=== PATIENT | female | born 1990 ===

== ENCOUNTER → 2023-03-06 | Outpatient (CLI) | payer OTHER | END | disposition home or self-care (01) | LOC: LAB 12:08 → PLD 12:08 → LAB SHORT 12:08 | DX: D48.5 Neoplasm of uncertain behavior of skin (principal) | CPT/HCPCS: 88305 ==

== ENCOUNTER → 2024-09-08 | Outpatient (CLI) | payer OTHER ==
[2024-09-16 06:11] LABS: HPV HIGH RISK BY TMA Not Detected; HPV SOURCE Cervical
== END ==
LOC: LAB 15:56 → LAB SHORT 15:56
PROVIDERS: Obstetrics & Gynecology
DX: Z01.419 Encounter for gynecological examination (general) (routine) without abnormal findings (principal)
CPT/HCPCS: 87624; G0123

== ENCOUNTER → 2024-11-06 | Outpatient (CLI) | payer OTHER ==
[2024-11-06 15:28] LABS: Source, Urine Clean Catch
[2024-11-06 17:40] LABS: Bacteria Rare /hpf; Red Blood Cells, Urine Not Seen /hpf (0-2); Squamous Epithelial Cells Rare /hpf (Few); White Blood Cells, Urine 0-2 /hpf (0-5)
== END | disposition home or self-care (01) ==
LOC: LAB SHORT 15:26
PROVIDERS: Obstetrics & Gynecology
DX: Z34.01 Encounter for supervision of normal first pregnancy, first trimester (principal)
CPT/HCPCS: 81015; 87086

== ENCOUNTER → 2024-12-10 | Outpatient (CLI) | payer OTHER ==
[2024-12-10 09:33] LABS: BASOPHILS ABSOLUTE AUTO 0.02 K/mm3 (0.00-0.23); BASOPHILS PERCENT AUTO 0 % (0-2); EOSINOPHILS ABSOLUTE AUTO 0.03 K/mm3 (0.00-0.68); EOSINOPHILS PERCENT AUTO 0 % (0-6); Hemoglobin 12.9 g/dL (11.5-16.0); IMMATURE GRAN ABSOLUTE AUTO 0.03 K/mm3 (0.00-0.10); IMMATURE GRAN PERCENT AUTO 0 % (0-1); LYMPHOCYTES ABSOLUTE AUTO 1.08 K/mm3 (0.84-5.20); LYMPHOCYTES PERCENT AUTO 15 % (21-46); MONOCYTES ABSOLUTE AUTO 0.21 K/mm3 (0.16-1.47); MONOCYTES PERCENT AUTO 3 % (4-13); Mean Corpuscular HGB 30.5 pg (26.0-34.0); Mean Corpuscular HGB Conc 35.8 g/dL (31.5-36.5); Mean Corpuscular Volume 85 fL (80-100); Mean Platelet Volume 9.1 fL (9.1-12.4); NEUTROPHILS ABSOLUTE AUTO 5.95 K/mm3 (1.96-9.15); NEUTROPHILS PERCENT AUTO 81 % (41-73); Platelet Count 264 K/mm3 (150-400); RDW Coefficient Variation 12.8 % (11.7-14.2); RDW Standard Deviation 39.3 fL (35.1-46.3); Red Blood Cell Count 4.23 M/mm3 (3.80-5.20); White Blood Cell Count 7.32 K/mm3 (4.00-11.30)
[2024-12-10 09:49] LABS: Albumin/Globulin Ratio 1.1 (0.8-1.8); Bilirubin, Total 0.7 mg/dL (0.1-1.0); Calcium, Blood 9.7 mg/dL (8.5-10.1); Creatinine, Blood 0.75 mg/dL (0.40-1.00); Globulin, Blood 3.7 g/dL (2.2-4.0); Potassium, Blood 3.4 mmol/L (3.5-5.5); Total Protein, Blood 7.7 g/dL (6.4-8.2)
== END | disposition home or self-care (01) ==
LOC: LAB SHORT 09:28 → LAB 09:28
PROVIDERS: Physician Assistant Medical
DX: R11.2 Nausea with vomiting, unspecified (principal)
CPT/HCPCS: 80053; 85025

== ENCOUNTER 2025-05-30 23:36 | Inpatient (IN) | payer OTHER ==
[~2025-05-30] VITALS: Ht 165.1 cm; Wt 88.0 kg
[2025-05-30 23:54] VITALS: BP 120/80
[2025-05-31] VITALS (18 sets, daily range): BP systolic 99–180; BP diastolic 54–92
[2025-05-31] MEDS ORDERED: FentaNYL Citrate 50 MCG/ML 2 ML Injection IV PRN (00:50)
[2025-05-31] MEDS ORDERED: Ondansetron HCl 2 MG / ML 2ML Vial IV PRN (00:55)
[2025-05-31] MEDS ORDERED: Tranexamic Acid 100 ML IV PRN (00:55)
[2025-05-31] MEDS ORDERED: FentaNYL 2mcg/ml-Bup 0.1% Epd 250 ML EPI PRN (00:55)
[2025-05-31] MEDS ORDERED: Methylergonovine Maleate 0.2MG / ML 1ML Amp IM PRN (00:55)
[2025-05-31] MEDS ORDERED: ePHEDrine Sulfate 50 MG/ML 1ML Injection XX PRN (00:55)
[2025-05-31] MEDS ORDERED: Oxytocin 10 Unit / ML Vial IM PRN (00:55)
[2025-05-31] MEDS ORDERED: Carboprost Tromethamine 250 MCG/ML 1ML Amp IM PRN (00:55)
[2025-05-31] MEDS ORDERED: OXYTOCIN/RINGER'S LACTATE 500 ML IV PRN (00:55)
[2025-05-31 01:32] LABS: BASOPHILS ABSOLUTE AUTO 0.03 K/mm3 (0.00-0.23); BASOPHILS PERCENT AUTO 0 % (0-2); EOSINOPHILS ABSOLUTE AUTO 0.14 K/mm3 (0.00-0.68); EOSINOPHILS PERCENT AUTO 1 % (0-6); Hematocrit 36.2 % (33.0-51.0); Hemoglobin 12.6 g/dL (11.5-16.0); IMMATURE GRAN ABSOLUTE AUTO 0.05 K/mm3 (0.00-0.10); IMMATURE GRAN PERCENT AUTO 1 % (0-1); LYMPHOCYTES ABSOLUTE AUTO 1.95 K/mm3 (0.84-5.20); LYMPHOCYTES PERCENT AUTO 20 % (21-46); MONOCYTES ABSOLUTE AUTO 0.51 K/mm3 (0.16-1.47); MONOCYTES PERCENT AUTO 5 % (4-13); Mean Corpuscular HGB Conc 34.8 g/dL (31.5-36.5); Mean Corpuscular Volume 93 fL (80-100); NEUTROPHILS ABSOLUTE AUTO 7.31 K/mm3 (1.96-9.15); NEUTROPHILS PERCENT AUTO 73 % (41-73); NRBC ABSOLUTE 0.00 K/mm3 (0.00-0.02); NRBC Auto 0.0 /100 WBC (0.0-0.2); Platelet Count 190 K/mm3 (150-400); RDW Coefficient Variation 15.3 % (11.7-14.2); RDW Standard Deviation 51.6 fL (35.1-46.3)
[2025-05-31] MEDS ORDERED: ONDA4ODT MM (03:38)
[2025-05-31] MEDS ORDERED: PRENATAL TABLE1 EAC2 PO (03:40)
[2025-05-31] MEDS ORDERED: ASPI81CH PO (03:40)
[2025-05-31] MEDS ORDERED: OXYTOCIN/RINGER'S LACTATE 500 ML IV SCH (09:35)
[2025-05-31] MEDS ORDERED: FentaNYL Citrate 50 MCG/ML 2 ML Injection ONE (21:14)
[2025-06-01] VITALS (22 sets, daily range): BP systolic 99–134; BP diastolic 56–85
[2025-06-01] MEDS ORDERED: Bupivacaine HCl 0.25% 30 ML Injection ONE (02:30)
[2025-06-01] MEDS ORDERED: Rho(D) Immune Globulin 300 MCG / SYR IM ONE (16:45)
[2025-06-01] MEDS ORDERED: Methylergonovine Maleate 0.2MG / ML 1ML Amp IM PRN (16:45)
[2025-06-01] MEDS ORDERED: OXYTOCIN/RINGER'S LACTATE 500 ML IV SCH (16:45)
[2025-06-01] MEDS ORDERED: FLU VACC TS2025-26(6MOS UP)/PF 45 MCG/0.5 ML SYRINGE IM SCH (16:50)
[2025-06-01] MEDS ORDERED: Witch Hazel/Glycerin PADS TOP PRN (16:50)
[2025-06-01] MEDS ORDERED: Carboprost Tromethamine 250 MCG/ML 1ML Amp IM PRN (16:50)
[2025-06-01] MEDS ORDERED: Benzocaine Topical Anesthetic Spray 60GM TOP PRN (16:50)
[2025-06-01] MEDS ORDERED: Tranexamic Acid 100 ML IV PRN (17:00)
[2025-06-01] MEDS ORDERED: Ketorolac Tromethamine 30mg Vial IV SCH (18:00)
--- NOTE | 2025-06-01 20:13 | NUR ---
DR AKHTAR IS NOTIFIED OF PT'S TOTAL QBL OF >1200 AND CURRENT VS WITH HR 130, PT UNABLE TO SIT UP WITHOUT FEELING LIGHTHEADED AND GETTING NAUSEATED. PPH PROTOCOL IS INITIATED AND ORDERS FOR IV FLUID BOLUS AND LABS ARE RECEIVED.
[2025-06-01 20:53] LABS: Hematocrit 26.9 % (33.0-51.0); Hemoglobin 9.3 g/dL (11.5-16.0); Mean Corpuscular HGB Conc 34.6 g/dL (31.5-36.5); Mean Corpuscular Volume 95 fL (80-100); NRBC ABSOLUTE 0.00 K/mm3 (0.00-0.02); NRBC Auto 0.0 /100 WBC (0.0-0.2); Platelet Count 173 K/mm3 (150-400); RDW Coefficient Variation 15.5 % (11.7-14.2); RDW Standard Deviation 53.3 fL (35.1-46.3)
--- NOTE | 2025-06-01 20:59 | NUR ---
DR AKHTAR UPDATED WITH REPEAT LABS AND PT IS STARTING TO FEEL BETTER IN SEMI FOWLERS POSITION AFTER FLUID BOLUS. WILL CONTINUE TO MONITOR PT CLOSELY PER PPH PROTOCOL AND IF PT BECOMES UNASTABLE OR CONTINUES TO BE SYMPTOMATIC, THEN WILL UPDATED FOR TRANSFUSION ORDERS. REPEAT LABS IN 4 HOURS.
[2025-06-01 21:48] LABS: Fibrinogen 406.0 mg/dL (170-430); Prothrombin Time Results 10.1 Sec (9.7-11.5)
--- NOTE | 2025-06-01 22:17 | NUR ---
At 1945 upon entery room. Pt is lying in her side and crying. She stated that she was not feeling right. She was neaseous and dizzy. Her pulse was 130, BP WNL, fundus firm with minimal bleeding. Cheli MEHTA in room to assess pt, she called Dr. Rizvi to update her on pt states and recieved orders. Bedpan provided due to pt being unable to sit up. Voided, pericare provided, and chux changed. Around 2100, IV bolus completed. Pt was uble to sit up without feeling dizzy and pulse 105. Bedpan was used again, she voided. Pt resting in bed at this time. Will continue to evaluate and monitor. Pt on continious SpO2 monitor.
[2025-06-02] VITALS (18 sets, daily range): BP systolic 105–132; BP diastolic 56–79
[2025-06-02 00:37] LABS: BASOPHILS ABSOLUTE AUTO 0.04 K/mm3 (0.00-0.23); BASOPHILS PERCENT AUTO 0 % (0-2); EOSINOPHILS ABSOLUTE AUTO 0.04 K/mm3 (0.00-0.68); EOSINOPHILS PERCENT AUTO 0 % (0-6); Hematocrit 24.9 % (33.0-51.0); Hemoglobin 8.5 g/dL (11.5-16.0); IMMATURE GRAN ABSOLUTE AUTO 0.08 K/mm3 (0.00-0.10); IMMATURE GRAN PERCENT AUTO 1 % (0-1); LYMPHOCYTES ABSOLUTE AUTO 1.48 K/mm3 (0.84-5.20); LYMPHOCYTES PERCENT AUTO 10 % (21-46); MONOCYTES ABSOLUTE AUTO 0.60 K/mm3 (0.16-1.47); MONOCYTES PERCENT AUTO 4 % (4-13); Mean Corpuscular HGB Conc 34.1 g/dL (31.5-36.5); Mean Corpuscular Volume 93 fL (80-100); NEUTROPHILS ABSOLUTE AUTO 12.99 K/mm3 (1.96-9.15); NEUTROPHILS PERCENT AUTO 85 % (41-73); NRBC ABSOLUTE 0.00 K/mm3 (0.00-0.02); NRBC Auto 0.0 /100 WBC (0.0-0.2); Platelet Count 177 K/mm3 (150-400); RDW Coefficient Variation 15.7 % (11.7-14.2); RDW Standard Deviation 53.0 fL (35.1-46.3)
--- NOTE | 2025-06-02 00:38 | NUR ---
Pt ambulated to restroom without dizziness. Pericare completed. Tucks, dermoblast and castor oil used. Educated on pericare and medication. Gown and linens changed. Pt c/o of rectal pain, medication given. She in lying in bed, denies other needs at this time. Pulse/ox monitors remain in place. CLWR
[2025-06-02 00:57] LABS: Fibrinogen 422.0 mg/dL (170-430); Prothrombin Time Results 10.1 Sec (9.7-11.5)
--- NOTE | 2025-06-02 05:21 | NUR ---
Pt c/o increased cramping and hip pain. Kpad provided and PO medication. Warm blankets provided. Denies all other needs at this time.
[2025-06-02 06:21] LABS: BASOPHILS ABSOLUTE AUTO 0.02 K/mm3 (0.00-0.23); BASOPHILS PERCENT AUTO 0 % (0-2); EOSINOPHILS ABSOLUTE AUTO 0.08 K/mm3 (0.00-0.68); EOSINOPHILS PERCENT AUTO 1 % (0-6); Hematocrit 22.9 % (33.0-51.0); Hemoglobin 7.8 g/dL (11.5-16.0); IMMATURE GRAN ABSOLUTE AUTO 0.07 K/mm3 (0.00-0.10); IMMATURE GRAN PERCENT AUTO 1 % (0-1); LYMPHOCYTES ABSOLUTE AUTO 1.52 K/mm3 (0.84-5.20); LYMPHOCYTES PERCENT AUTO 15 % (21-46); MONOCYTES ABSOLUTE AUTO 0.50 K/mm3 (0.16-1.47); MONOCYTES PERCENT AUTO 5 % (4-13); Mean Corpuscular HGB Conc 34.1 g/dL (31.5-36.5); Mean Corpuscular Volume 92 fL (80-100); NEUTROPHILS ABSOLUTE AUTO 8.29 K/mm3 (1.96-9.15); NEUTROPHILS PERCENT AUTO 79 % (41-73); NRBC ABSOLUTE 0.00 K/mm3 (0.00-0.02); NRBC Auto 0.0 /100 WBC (0.0-0.2); Platelet Count 135 K/mm3 (150-400); RDW Coefficient Variation 15.8 % (11.7-14.2); RDW Standard Deviation 53.3 fL (35.1-46.3)
[2025-06-02] MEDS ORDERED: Magnesium Hydroxide Conc 10 ML UDC PO PRN (07:35)
[2025-06-02] MEDS ORDERED: NS 1,000 ML IV ONE (08:30)
[2025-06-02] MEDS ORDERED: Prenatal Vit/FE Fumarate/FA 1 Tab PO SCH (09:00)
--- NOTE | 2025-06-02 12:36 | NUR ---
UP TO SHOWER WITH ASSIST FROM . ANGELIKA WELL. DECLINED ASSISTANCE FROM STAFF. REPORTS SHE IS FEELING MUCH BETTER.
[2025-06-02 15:32] LABS: BASOPHILS ABSOLUTE AUTO 0.04 K/mm3 (0.00-0.23); BASOPHILS PERCENT AUTO 0 % (0-2); EOSINOPHILS ABSOLUTE AUTO 0.15 K/mm3 (0.00-0.68); EOSINOPHILS PERCENT AUTO 1 % (0-6); Hematocrit 28.7 % (33.0-51.0); Hemoglobin 9.8 g/dL (11.5-16.0); IMMATURE GRAN ABSOLUTE AUTO 0.08 K/mm3 (0.00-0.10); IMMATURE GRAN PERCENT AUTO 1 % (0-1); LYMPHOCYTES ABSOLUTE AUTO 2.28 K/mm3 (0.84-5.20); LYMPHOCYTES PERCENT AUTO 18 % (21-46); MONOCYTES ABSOLUTE AUTO 0.50 K/mm3 (0.16-1.47); MONOCYTES PERCENT AUTO 4 % (4-13); Mean Corpuscular HGB Conc 34.1 g/dL (31.5-36.5); Mean Corpuscular Volume 93 fL (80-100); NEUTROPHILS ABSOLUTE AUTO 9.50 K/mm3 (1.96-9.15); NEUTROPHILS PERCENT AUTO 76 % (41-73); NRBC ABSOLUTE 0.00 K/mm3 (0.00-0.02); NRBC Auto 0.0 /100 WBC (0.0-0.2); Platelet Count 181 K/mm3 (150-400); RDW Coefficient Variation 16.5 % (11.7-14.2); RDW Standard Deviation 55.2 fL (35.1-46.3)
--- NOTE | 2025-06-02 17:57 | NUR ---
1445: REPORT GIVEN TO Nino BRADLEY RN
== END 2025-06-02 19:20 | disposition home or self-care (01) | DRG 807 ==
LOC: OBS 23:36 → BC 23:42 → OBS 05-31 00:41 → BC 05-31 00:42
PROVIDERS: Obstetrics & Gynecology; ADMIT Family Medicine
PROC: 10E0XZZ Delivery of Products of Conception, External Approach (ICD-10-PCS; principal; 2025-06-01)
PROC: 0KQM0ZZ Repair Perineum Muscle, Open Approach (ICD-10-PCS; 2025-06-01)
PROC: 3E0R3BZ Introduction of Anesthetic Agent into Spinal Canal, Percutaneous Approach (ICD-10-PCS; 2025-06-01)
PROC: 00HU33Z Insertion of Infusion Device into Spinal Canal, Percutaneous Approach (ICD-10-PCS; 2025-06-01)
DX: O42.92 Full-term premature rupture of membranes, unspecified as to length of time between rupture and onset of labor (principal); Z37.0 Single live birth; O99.02 Anemia complicating childbirth; D50.9 Iron deficiency anemia, unspecified; O70.1 Second degree perineal laceration during delivery; O90.2 Hematoma of obstetric wound; Z3A.38 38 weeks gestation of pregnancy
CPT/HCPCS: 36415; 36430; 51702; 84112; 85025; 85027; 85384; 85610; 85730; 86850; 86900; 86901; 86923; 87210; 99214; A9270; J1885; J2405; J2590; J3010; J7030; J7120; P9016

== ENCOUNTER → 2025-07-17 | Outpatient (CLI) | payer OTHER ==
[~2025-07-17] MED LIST: ASPI81CH PO; ONDA4ODT MM; PRENATAL TABLE1 EAC2 PO
[2025-07-17 18:50] LABS: Bacterial Vaginosis PCR Negative (NEGATIVE); Candida Group, PCR NOT DETECTED (NOT DETECT); Candida glabrata-krusei, PCR NOT DETECTED (NOT DETECT)
== END ==
LOC: LAB 10:08 → LAB SHORT 10:08
PROVIDERS: Obstetrics & Gynecology
DX: N89.8 Other specified noninflammatory disorders of vagina (principal)
CPT/HCPCS: 81515